=== PATIENT | female | born 1980 | race Caucasian/White ===

== ENCOUNTER 2018-06-28 15:02 | Emergency (ER) | payer OTHER ==
--- NOTE | 2018-06-28 15:32 | ED ---
Recheck HPI - General Source: patient, RN/MD, RN notes reviewed, Caregiver Mode of arrival: ambulatory Limitations: no limitations <Ronald Lin - Last Filed: 06/28/18 16:44> <Kaden Rubio - Last Filed: 06/28/18 22:11> - General Chief Complaint: Recheck/Abnormal Lab/Rx Stated Complaint: dr sent Time Seen by Provider: 06/28/18 15:13 - History of Present Illness Initial Comments: This is a 38-year-old female with a history of being developmentally this delayed, autism, several other problems acute be gleaned from the chart who was sent in by her doctor today because of periorbital edema and peripheral edema that is refractory to care. His concern for renal failure. Patient's after responding medications and has had increased edema. No reports of fevers chills nausea vomiting sweats or other symptoms. The patient herself is a poor historian (Ronald Lin) - Related Data Home Medications Medication Instructions Recorded Confirmed Fluocinonide 0.05% [Lidex 0.05% 1 applic TOPICAL DAILY 06/28/18 06/28/18 cream] Hydrochlorothiazide 25 mg PO DAILY 06/28/18 06/28/18 Ketoconazole 2% Shampoo [Nizoral] 1 applic TOPICAL Q48H 06/28/18 06/28/18 L. Rhamnosus GG/Inulin [Culturelle 1 tab PO DAILY 06/28/18 06/28/18 Chewable Tablet] LORazepam [Ativan] 1 mg PO TID 06/28/18 06/28/18 Levothyroxine Sodium [Synthroid] 75 mcg PO DAILY 06/28/18 06/28/18 Loperamide HCl [Imodium A-D] 2 mg PO DAILY PRN 06/28/18 06/28/18 Loratadine [Claritin] 10 mg PO DAILY 06/28/18 06/28/18 Multivitamins, Thera [Multivitamin 1 tab PO DAILY 06/28/18 06/28/18 (formulary)] Propylene Glycol/Peg 400/Pf 1 drop BOTH EYES BID 06/28/18 06/28/18 [Systane 0.3-0.4% Eye Drops] Valproic Acid Oral Soln [Depakene 1,250 mg PO BID 06/28/18 06/28/18 Syrup] risperiDONE 3 mg PO BID 06/28/18 06/28/18 Allergies Allergy/AdvReac Type Severity Reaction Status Date / Time Penicillins Allergy Unknown Verified 06/28/18 15:28 Review of Systems ROS Other: All systems not noted in ROS Statement are negative. <RileyRonald - Last Filed: 06/28/18 16:44> ROS Other: All systems not noted in ROS Statement are negative. <Kaden Rubio - Last Filed: 06/28/18 22:11> ROS Statement: Those systems with pertinent positive or pertinent negative responses have been documented in the HPI. Past Medical History Additional Past Medical History / Comment(s): OCD, Bioplar, Autism, Developmentally disabled, anxiety, SIB, Psoriasis, Cellulitius of eye, Colitis. Pneumonia, Afib History of Any Multi-Drug Resistant Organisms: None Reported Past Surgical History: No Surgical Hx Reported Past Psychological History: Anxiety, Bipolar Smoking Status: Never smoker Past Alcohol Use History: None Reported Past Drug Use History: None Reported <RileyRonald - Last Filed: 06/28/18 16:44> General Exam Limitations: no limitations General appearance: alert, anxious Head exam: Present: normocephalic, other (Periorbital edema is noted.) Eye exam: Present: normal appearance, PERRL, EOMI. Absent: scleral icterus, conjunctival injection, periorbital swelling ENT exam: Present: normal exam, mucous membranes moist Neck exam: Present: normal inspection, full ROM, other (No stridor JVD or bruits ). Absent: tenderness, meningismus, lymphadenopathy Respiratory exam: Present: decreased breath sounds Cardiovascular Exam: Present: normal rhythm, tachycardia GI/Abdominal exam: Present: soft, normal bowel sounds. Absent: distended, tenderness, guarding, rebound, rigid Extremities exam: Present: full ROM, normal capillary refill, pedal edema. Absent: normal inspection Back exam: Present: normal inspection Neurological exam: Present: alert, altered, CN II-XII intact Psychiatric exam: Present: anxious Skin exam: Present: warm, dry, intact, normal color <RileyRonald - Last Filed: 06/28/18 16:44> General appearance: alert, in no apparent distress Head exam: Present: atraumatic, normocephalic, normal inspection Eye exam: Present: normal appearance, PERRL, EOMI. Absent: scleral icterus, conjunctival injection, periorbital swelling ENT exam: Present: normal exam, mucous membranes moist Neck exam: Present: normal inspection. Absent: tenderness, meningismus, lymphadenopathy Respiratory exam: Present: normal lung sounds bilaterally. Absent: respiratory distress, wheezes, rales, rhonchi, stridor Cardiovascular Exam: Present: regular rate, normal rhythm, normal heart sounds. Absent: systolic murmur, diastolic murmur, rubs, gallop, clicks GI/Abdominal exam: Present: soft, normal bowel sounds. Absent: distended, tenderness, guarding, rebound, rigid Extremities exam: Present: normal inspection, full ROM, normal capillary refill. Absent: tenderness, pedal edema, joint swelling, calf tenderness Back exam: Present: normal inspection Neurological exam: Present: alert, oriented X3, CN II-XII intact Psychiatric exam: Present: normal affect, normal mood Skin exam: Present: warm, dry, intact, normal color. Absent: rash <Kaden Rubio - Last Filed: 06/28/18 22:11> - General Exam Comments Initial Comments: This is a well-developed sec appearing female who is awake alert. (Ronald Lin) Course <Ronald Lin - Last Filed: 06/28/18 16:44> <Kaden Rubio - Last Filed: 06/28/18 22:11> Vital Signs 06/28/18 06/28/18 15:04 18:06 Pulse Rate 119 H 117 H Respiratory 18 22 Rate Blood Pressure 135/83 129/94 O2 Sat by Pulse 98 97 Oximetry - Reevaluation(s) Reevaluation #1: 06/28/18 16:43 The patient's care will be endorsed to Dr. Rubio at shift change (Ronald Lin ) Reevaluation #2: 06/28/18 22:10 Extensively of attempted to get CT of the patient secondary to elevated d- dimer. Patient remains not hypoxic throughout ER stay, patient would not cooperate for d-dimer at this point decision is made to forego getting CAT scan (Kaden Rubio) Medical Decision Making - EKG Data -: EKG Interpreted by Me EKG shows normal: sinus rhythm (Sinus tachycardia of 107. Interval 126 QRS duration 76 QT since QTC 360/40 artifact is noted.) <Ronald Lin - Last Filed: 06/28/18 16:44> - Lab Data Result diagrams: 06/28/18 15:57 06/28/18 15:57 <Kaden Rubio - Last Filed: 06/28/18 22:11> - Medical Decision Making 38 female developmentally delayed coming in for evaluation of possible renal failure secondary eyelid edema, labwork is normal here in the emergency room, patient will be discharged (Kaden Rubio) - Lab Data Lab Results 06/28/18 06/28/18 06/28/18 Range/Units 15:57 15:57 15:57 WBC 5.5 (3.8-10.6) k/uL RBC 2.91 L (3.80-5.40) m/uL Hgb 9.2 L (11.4-16.0) gm/dL Hct 29.2 L (34.0-46.0) % MCV 100.3 H (80.0-100.0) fL MCH 31.6 (25.0-35.0) pg MCHC 31.5 (31.0-37.0) g/dL RDW 14.8 (11.5-15.5) % Plt Count 196 (150-450) k/uL Neutrophils % 59 % Lymphocytes % 28 % Monocytes % 9 % Eosinophils % 2 % Basophils % 0 % Neutrophils # 3.3 (1.3-7.7) k/uL Lymphocytes # 1.6 (1.0-4.8) k/uL Monocytes # 0.5 (0-1.0) k/uL Eosinophils # 0.1 (0-0.7) k/uL Basophils # 0.0 (0-0.2) k/uL Hypochromasia Slight Macrocytosis Slight D-Dimer (<0.60) mg/L FEU Sodium (137-145) mmol/L Potassium (3.5-5.1) mmol/L Chloride (98-107) mmol/L Carbon Dioxide (22-30) mmol/L Anion Gap mmol/L BUN (7-17) mg/dL Creatinine (0.52-1.04) mg/dL Est GFR (CKD-EPI)AfAm (>60 ml/min/1.73 sqM) Est GFR (CKD-EPI)NonAf (>60 ml/min/1.73 sqM) Glucose (74-99) mg/dL Calcium (8.4-10.2) mg/dL Magnesium (1.6-2.3) mg/dL Total Bilirubin (0.2-1.3) mg/dL AST (14-36) U/L ALT (9-52) U/L Alkaline Phosphatase (38-126) U/L Total Creatine Kinase 39 (30-135) U/L CK-MB (CK-2) 0.9 (0.0-2.4) ng/mL CK-MB (CK-2) Rel Index 2.3 Troponin I <0.012 (0.000-0.034) ng/mL NT-Pro-B Natriuret Pep 432 pg/mL Total Protein (6.3-8.2) g/dL Albumin (3.5-5.0) g/dL Urine Color Urine Appearance (Clear) Urine pH (5.0-8.0) Ur Specific Rohwer (1.001-1.035) Urine Protein (Negative) Urine Glucose (UA) (Negative) Urine Ketones (Negative) Urine Blood (Negative) Urine Nitrite (Negative) Urine Bilirubin (Negative) Urine Urobilinogen (<2.0) mg/dL Ur Leukocyte Esterase (Negative) Urine Opiates Screen (NotDetected) Ur Oxycodone Screen (NotDetected) Urine Methadone Screen (NotDetected) Ur Propoxyphene Screen (NotDetected) Ur Barbiturates Screen (NotDetected) U Tricyclic Antidepress (NotDetected) Ur Phencyclidine Scrn (NotDetected) Ur Amphetamines Screen (NotDetected) U Methamphetamines Scrn (NotDetected) U Benzodiazepines Scrn (NotDetected) Urine Cocaine Screen (NotDetected) U Marijuana (THC) Screen (NotDetected) 06/28/18 06/28/18 06/28/18 Range/Units 15:57 15:57 16:20 WBC (3.8-10.6) k/uL RBC (3.80-5.40) m/uL Hgb (11.4-16.0) gm/dL Hct (34.0-46.0) % MCV (80.0-100.0) fL MCH (25.0-35.0) pg MCHC (31.0-37.0) g/dL RDW (11.5-15.5) % Plt Count (150-450) k/uL Neutrophils % % Lymphocytes % % Monocytes % % Eosinophils % % Basophils % % Neutrophils # (1.3-7.7) k/uL Lymphocytes # (1.0-4.8) k/uL Monocytes # (0-1.0) k/uL Eosinophils # (0-0.7) k/uL Basophils # (0-0.2) k/uL Hypochromasia Macrocytosis D-Dimer 2.46 H (<0.60) mg/L FEU Sodium 142 (137-145) mmol/L Potassium 4.3 (3.5-5.1) mmol/L Chloride 103 (98-107) mmol/L Carbon Dioxide 34 H (22-30) mmol/L Anion Gap 5 mmol/L BUN 11 (7-17) mg/dL Creatinine 0.53 (0.52-1.04) mg/dL Est GFR (CKD-EPI)AfAm >90 (>60 ml/min/1.73 sqM) Est GFR (CKD-EPI)NonAf >90 (>60 ml/min/1.73 sqM) Glucose 109 H (74-99) mg/dL Calcium 8.8 (8.4-10.2) mg/dL Magnesium 1.9 (1.6-2.3) mg/dL Total Bilirubin 0.3 (0.2-1.3) mg/dL AST 33 (14-36) U/L ALT 28 (9-52) U/L Alkaline Phosphatase 54 (38-126) U/L Total Creatine Kinase (30-135) U/L CK-MB (CK-2) (0.0-2.4) ng/mL CK-MB (CK-2) Rel Index Troponin I (0.000-0.034) ng/mL NT-Pro-B Natriuret Pep pg/mL Total Protein 6.7 (6.3-8.2) g/dL Albumin 3.1 L (3.5-5.0) g/dL Urine Color Yellow Urine Appearance Clear (Clear) Urine pH 7.5 (5.0-8.0) Ur Specific Rohwer 1.016 (1.001-1.035) Urine Protein Trace H (Negative) Urine Glucose (UA) Negative (Negative) Urine Ketones Negative (Negative) Urine Blood Negative (Negative) Urine Nitrite Negative (Negative) Urine Bilirubin Negative (Negative) Urine Urobilinogen <2.0 (<2.0) mg/dL Ur Leukocyte Esterase Negative (Negative) Urine Opiates Screen Not Detected (NotDetected) Ur Oxycodone Screen Not Detected (NotDetected) Urine Methadone Screen Not Detected (NotDetected) Ur Propoxyphene Screen Not Detected (NotDetected) Ur Barbiturates Screen Not Detected (NotDetected) U Tricyclic Antidepress Not Detected (NotDetected) Ur Phencyclidine Scrn Not Detected (NotDetected) Ur Amphetamines Screen Not Detected (NotDetected) U Methamphetamines Scrn Not Detected (NotDetected) U Benzodiazepines Scrn Detected H (NotDetected) Urine Cocaine Screen Not Detected (NotDetected) U Marijuana (THC) Screen Not Detected (NotDetected) Disposition <Ronald Lin - Last Filed: 06/28/18 16:44> Is patient prescribed a controlled substance at d/c from ED?: No <Kaden Rubio - Last Filed: 06/28/18 22:11> Clinical Impression: Eyelid edema Disposition: HOME SELF-CARE Condition: Good Instructions: Edema (ED) Referrals: Nas Fontanez MD [Primary Care Provider] - 1-2 days
--- NOTE | 2018-06-28 16:08 | XR ---
EXAMINATION TYPE: XR chest 2V DATE OF EXAM: 06/28/2018 COMPARISON: None INDICATION: Abnormal labs, renal failure TECHNIQUE: Frontal and lateral views of the chest are obtained. FINDINGS: The heart size is normal. The pulmonary vasculature is normal. The lungs are clear. IMPRESSION: 1. No acute pulmonary process.
[2018-06-28 16:35] LABS: Appearance,Urine Clear (Clear); Bilirubin,Urine Negative (Negative); Blood,Urine Negative (Negative); Color,Urine Yellow; Glucose,Urine (UA) Negative (Negative); Ketones,Urine Negative (Negative); Leukocyte Esterase,Urine Negative (Negative); Nitrite,Urine Negative (Negative); PH, Urine 7.5 (5.0-8.0); Protein,Urine Trace (Negative); Specific Gravity,Urine 1.016 (1.001-1.035); Urobilinogen,Urine <2.0 mg/dL (<2.0)
[2018-06-28 16:45] LABS: Amphetamine Screen,Urine Not Detected (NotDetected); Barbiturate Screen,Urine Not Detected (NotDetected); Benzodiazepines Screen,Urine Detected (NotDetected); Cocaine Screen,Urine Not Detected (NotDetected); Methadone Screen, Urine Not Detected (NotDetected); Opiate Screen,Urine Not Detected (NotDetected); Oxycodone Screen, Urine Not Detected (NotDetected); Phencyclidine Screen,Urine Not Detected (NotDetected); Tricyclic Antidepressant,Urine Not Detected (NotDetected); Urn Cannabinoid Scrn Not Detected (NotDetected)
[2018-06-28 16:47] LABS: Basophils % (A) 0 %; Eosinophils # (A) 0.1 k/uL (0-0.7); Eosinophils % (A) 2 %; HCT 29.2 % (34.0-46.0); HGB 9.2 gm/dL (11.4-16.0); Hypochromasia Slight; Lymphocytes # (A) 1.6 k/uL (1.0-4.8); Lymphocytes % (A) 28 %; MCH 31.6 pg (25.0-35.0); MCHC 31.5 g/dL (31.0-37.0); MCV 100.3 fL (80.0-100.0); Macrocytosis Slight; Mean Platelet Volume 8.8; Monocytes # (A) 0.5 k/uL (0-1.0); Monocytes % (A) 9 %; Neutrophils # (A) 3.3 k/uL (1.3-7.7); Neutrophils % (A) 59 %; Platelet Count 196 k/uL (150-450); RBC 2.91 m/uL (3.80-5.40); RDW 14.8 % (11.5-15.5); WBC 5.5 k/uL (3.8-10.6)
[2018-06-28 16:56] LABS: ALT 28 U/L (9-52); AST 33 U/L (14-36); Albumin 3.1 g/dL (3.5-5.0); Alkaline Phosphatase 54 U/L (38-126); Anion Gap 5 mmol/L; Blood Urea Nitrogen 11 mg/dL (7-17); Calcium 8.8 mg/dL (8.4-10.2); Carbon Dioxide 34 mmol/L (22-30); Chloride 103 mmol/L (98-107); Glucose 109 mg/dL (74-99); Magnesium 1.9 mg/dL (1.6-2.3); Potassium 4.3 mmol/L (3.5-5.1); Sodium 142 mmol/L (137-145); Total Bilirubin 0.3 mg/dL (0.2-1.3); Total Protein 6.7 g/dL (6.3-8.2)
[2018-06-28 17:09] LABS: Creatine Kinase 39 U/L (30-135)
[2018-06-28 17:23] LABS: Creatine Kinase MB 0.9 ng/mL (0.0-2.4); Troponin I <0.012 ng/mL (0.000-0.034)
[2018-06-28] MEDS ORDERED: DIAZEPAM 5 MG/ML 2 ML INJ IVP STA (17:36)
[2018-06-28] MEDS ORDERED: LORazepam 2 MG/ML INJ IV STA ×2 (18:46→19:54)
[2018-06-28] MEDS ORDERED: HALOPERIDOL LACTATE 5 MG/ML 1 ML VIAL IM STA (20:29)
[2018-06-28] MEDS ORDERED: diphenhydrAMINE 50 MG/ML 1 ML VIAL IVP STA (20:29)
[2018-06-28 22:19] VITALS: BP 141/64; PULSE 112; RESP 20; TEMP 97.5
== END 2018-06-28 22:19 | disposition home or self-care (01) ==
LOC: EC 15:02
DX: H02.849 Edema of unspecified eye, unspecified eyelid (principal); R62.50 Unspecified lack of expected normal physiological development in childhood; F41.9 Anxiety disorder, unspecified; F31.9 Bipolar disorder, unspecified; Z79.899 Other long term (current) drug therapy; Z88.0 Allergy status to penicillin
CPT/HCPCS: 36415; 93005; 85379; 83880; 80053; 82550; 82553; 83735; 84484; 85025; 81003; 80306; 71046; 99284; 96374; 96375 ×2; 96376; 96372; J2060; J1200; J1630; J3360